=== PATIENT | female | born 1995 | race Caucasian/White ===

== ENCOUNTER → 2024-03-18 | Outpatient (CLI) | payer OTHER, SELFPAY ==
--- NOTE | 2024-03-18 15:45 | XR_ITS ---
Examination: MRI left ankle, without contrast Date and time of exam: March 18, 2024 at 1648 hours INDICATIONS: Left ankle swelling and pain post injury February 09, 2024 Technique: Multiple axial sagittal and coronal images of the left ankle have been obtained with the Siemens high-resolution 1.5 Sasha MRI scanner. Images obtained include T2-weighted fat-suppressed sagittal sections, TR 3500, TE 46, T2 weighted coronal fat suppressed images, TR 3050, TE 84, T2-weighted transverse fat suppressed images, TR 3260, TE 63, proton density transverse images, TR 4720 TE 46, and T1 weighted coronal images, TR 560, TE 13. Findings: No occult fracture bone contusion or marrow edema Mild biconvex thickening of the Achilles tendon Minimal plantar fasciitis No significant ankle effusion Negative for sinus Tarsi syndrome Mild edema adjacent to the medial lateral malleolar regions Anterior posterior inferior tibiofibular ligaments intact Moderate sprain anterior talofibular ligament Dome of the talus intact Tendinitis posterior tibial flexor digitorum and flexor hallucis longus tendons Extensor tendons intact IMPRESSION: Mild Achilles tendinosis Minimal plantar fasciitis Moderate sprain anterior talofibular ligament Tendinitis posterior tibial, flexure digitorum, flexor hallucis longus tendons
== END | disposition home or self-care (01) ==
PROVIDERS: PCP Nurse Practitioner Family; Referring Provider Nurse Practitioner Family; Visit Provider Nurse Practitioner Family
DX: M72.2 Plantar fascial fibromatosis (principal); S93.492A Sprain of other ligament of left ankle, initial encounter; Y93.02 Activity, running; M76.822 Posterior tibial tendinitis, left leg; M76.62 Achilles tendinitis, left leg
CPT/HCPCS: 73721